=== PATIENT | male | born 1960 | race Two or more races ===

== ENCOUNTER 2024-03-26 08:49 | Emergency (ER) | payer OTHER ==
[~2024-03-26] VITALS: Ht 177.8 cm; Wt 104.3 kg
[2024-03-26] MEDS ORDERED: HYZAAR 100-12.1 EACH (09:00)
[2024-03-26] MEDS ORDERED: DICYCLOMINE HCL 10 MG CAPSULE PO ONE (09:25)
[2024-03-26] MEDS ORDERED: FAMOTIDINE/PF 20 MG/2 ML VIAL ONE (09:25)
[2024-03-26] MEDS ORDERED: FAMOtidine 10 MG/ML (4ML VIAL) IV PUSH ONE (09:30)
[2024-03-26] MEDS ORDERED: DICYCLOMINE HCL 20 MG TABLET PO ONE (09:30)
[2024-03-26 10:59] LABS: HEMATOCRIT 40.1 % (39.0-48.0); HEMOGLOBIN 13.6 g/dL (13-16.00); MEAN CELL VOLUME 89.2 fL (80.0-100.00); MEAN CORPUSCULAR HEMOGLOBIN 30.3 pg (27.00-32.0); PLATELET COUNT 346 K/uL (150-450); RED CELL DISTRIBUTION WIDTH 13.7 % (11.5-14.5)
[2024-03-26 11:26] LABS: BILIRUBIN TOTAL 0.88 mg/dL (0.3-1.2); CALCIUM 9.6 mg/dL (8.5-10.1); CREATININE SERUM 1.71 mg/dL (0.70-1.30); GFR 40.63; GLOBULINA 3.5 G/DL (2.4-3.5); POTASSIUM 3.49 mEq/L (3.5-5.1); TOTAL PROTEIN 7.5 gm/dL (6.4-8.2)
[2024-03-26] MEDS ORDERED: PROBIOTIC1 EAC2 PO (11:57)
[2024-03-26] MEDS ORDERED: PEPCID AC20 MG PO (11:57)
== END 2024-03-26 12:41 | disposition home or self-care (01) ==
LOC: ER 08:51
PROVIDERS: General Practice
DX: R19.7 Diarrhea, unspecified (principal); Z88.6 Allergy status to analgesic agent; Z85.828 Personal history of other malignant neoplasm of skin; N19 Unspecified kidney failure; E11.9 Type 2 diabetes mellitus without complications; I10 Essential (primary) hypertension; Z20.822 Contact with and (suspected) exposure to COVID-19